=== PATIENT | male | born 1980 | race Caucasian/White ===

== ENCOUNTER 2017-10-21 08:03 | Emergency (ER) | payer MEDICAID ==
[2017-10-21 08:15] VITALS: BP 125/84
[2017-10-21] MEDS ORDERED: cefTRIAXone 250 MG VIAL IM STA (08:36)
[2017-10-21] MEDS ORDERED: LIDOCAINE 1% 2 ML VIAL SUBQ ONE (08:36)
[2017-10-21] MEDS ORDERED: AZITHROMYCIN 250 MG TABLET PO STA (08:36)
--- NOTE | 2017-10-21 08:42 | ED Physician Documentation ---
History of Present Illness - Stated complaint Stated Complaint: ARM PAIN/LUMP - Chief complaint Chief Complaint: Ext Problem - History obtained from History obtained from: Patient - History of Present Illness Timing: How many weeks ago (2) - Additonal information Additional information: 37 y/o male with a history of abscesses presents today with 2 complaints. 1) He has some areas on his right forearm that bulge out when he flexes. These have been present for 5 years and he has a new one on the volar surface of the right forearm that he noticed when he was using a hammer. 2). He and his girlfriend have had STD and she has recently been treated and he was not and they have been together and she is symptomatic again and the 2 of them would like to be treated simultaneously. Review of Systems Constitutional: denies: Fever Eyes: denies: Decreased vision Respiratory: denies: Dyspnea, Cough GI: denies: Abdominal Pain, Vomiting : denies: Dysuria, Frequency Skin: denies: Rash Musculoskeletal: reports: Extremity pain. denies: Neck pain, Back pain Neurologic: denies: Generalized weakness, Focal weakness, Numbness PD PAST MEDICAL HISTORY - Past Medical History Past Medical History: No Cardiovascular: None Respiratory: None Endocrine/Autoimmune: None GI: None HEENT: None Psych: None Musculoskeletal: None Derm: None - Past Surgical History Past Surgical History: No - Present Medications Home Medications: Ambulatory Orders Medication Instructions Recorded Confirmed No Known Home Medications [No 10/21/17 10/21/17 Known Home Medications] - Allergies Allergies/Adverse Reactions: Allergies Allergy/AdvReac Type Severity Reaction Status Date / Time No Known Drug Allergies Allergy Verified 10/21/17 08:15 - Social History Does the pt smoke?: Yes Smoking Status: Current every day smoker Does the pt drink ETOH?: No Does the pt have substance abuse?: Yes Substance Use and Type: Marijuana - Immunizations Immunizations are current?: Yes Immunizations: TDAP >10years/unknown - POLST Patient has POLST: No PD ED PE NORMAL - Vitals Vital signs reviewed: Yes (normal ) - General General: Alert and oriented X 3, No acute distress, Well developed/nourished - HEENT HEENT: Atraumatic, PERRL, EOMI - Respiratory Respiratory: No respiratory distress - Derm Derm: Normal color, Warm and dry, No rash - Extremities Extremities: No deformity, No edema, Other (There are 3 large 1cm long firm masses on flexor tendonds of the forearm. One is proximal one is dorsal and one is distal volar. The newest distal volar is reducible partially. They appear to be ganglion cysts in this patients arm with little sub Q fat. There is no overlying inflamation, abrasion or drainage. ) - Neuro Neuro: No motor deficit, No sensory deficit Eye Opening: Spontaneous Motor: Obeys Commands Verbal: Oriented GCS Score: 15 - Psych Psych: Normal mood, Normal affect Results - Vitals Vitals: Vital Signs - 24 hr 10/21/17 08:06 Temperature 36.2 C L Heart Rate 87 Respiratory 16 Rate Blood Pressure 125/84 H O2 Saturation 100 Oxygen O2 Source Room air PD MEDICAL DECISION MAKING - ED course Complexity details: considered differential, d/w patient ED course: 37-year-old male with what appears to be ganglion cysts in the forearm is recommended the use of a neoprene sleeve and referral to orthopedics for potential surgical repair. In addition he is treated for STD with the use of Rocephin 250 mg IM and azithromycin 1 g p.o. His partner has tested + for trichominiasis and he is administered metronidazole 2gm PO as well. - Sepsis Event Vital Signs: Vital Signs - 24 hr 10/21/17 08:06 Temperature 36.2 C L Heart Rate 87 Respiratory 16 Rate Blood Pressure 125/84 H O2 Saturation 100 Oxygen O2 Source Room air Departure - Departure Disposition: 01 Home, Self Care Clinical Impression: Ganglion and cyst of synovium, tendon and bursa, Exposure to STD Condition: Stable Instructions: ED Cyst Ganglion, ED STD Male Treated Follow-Up: [facility] [Provider Group]
[2017-10-21] MEDS ORDERED: metroNIDAZOLE 250 MG TABLET PO STA (09:16)
== END 2017-10-21 09:26 | disposition home or self-care (01) ==
LOC: ED 08:03
DX: M67.431 Ganglion, right wrist (principal); M71.38 Other bursal cyst, other site; Z20.2 Contact with and (suspected) exposure to infections with a predominantly sexual mode of transmission; F17.200 Nicotine dependence, unspecified, uncomplicated
CPT/HCPCS: 96372; 99283; A9270

== ENCOUNTER 2018-03-22 17:19 | Emergency (ER) | payer MEDICAID ==
[2018-03-22 17:30] VITALS: BP 135/88
[2018-03-22] MEDS ORDERED: HYDROcod/ACET 5/325 Prepack 4 PO STA (17:40)
[2018-03-22] MEDS ORDERED: SULFAMETH/TRIMETH DS 800/160 MG TABLET PO STA (17:40)
[2018-03-22] MEDS ORDERED: cephALEXin 250 MG CAPSULE PO STA (17:40)
--- NOTE | 2018-03-22 17:43 | ED Physician Documentation ---
PD HPI SKIN - Stated complaint Stated Complaint: INSECT BITE LEFT WRIST - Chief complaint Chief Complaint: Wound - History obtained from History obtained from: Patient - History of Present Illness Timing - onset: Other (He had a pimple on the left wrist that he popped but he has swelling of the hand and pain there now. No fevers but he does have a little headache today. He denies IV drug use.) Review of Systems Constitutional: denies: Fever, Chills Cardiac: denies: Chest pain / pressure, Palpitations Respiratory: denies: Dyspnea, Cough PD PAST MEDICAL HISTORY - Past Medical History Past Medical History: No Cardiovascular: None Respiratory: None Endocrine/Autoimmune: None GI: None HEENT: None Psych: None Musculoskeletal: None Derm: None - Past Surgical History Past Surgical History: Yes - Present Medications Home Medications: Ambulatory Orders Medication Instructions Recorded Confirmed Cephalexin [Keflex] 500 mg PO Q6H #40 capsule 03/22/18 Hydrocodone/Acetaminophen 1 each PO Q4H PRN #15 tablet 03/22/18 [Hydrocodone-Acetamin 5-325 mg] Sulfamethoxazole/Trimethoprim 1 each PO BID #20 tablet 03/22/18 [Sulfamethoxazole-Tmp Ds Tablet] - Allergies Allergies/Adverse Reactions: Allergies Allergy/AdvReac Type Severity Reaction Status Date / Time No Known Drug Allergies Allergy Verified 03/22/18 17:23 - Social History Does the pt smoke?: Yes Smoking Status: Current every day smoker Does the pt drink ETOH?: No Does the pt have substance abuse?: No - Immunizations Immunizations are current?: No Immunizations: TDAP >10years/unknown - POLST Patient has POLST: No PD ED PE NORMAL - Vitals Vital signs reviewed: Yes - General General: Alert and oriented X 3, No acute distress - Neuro Neuro: Alert and oriented X 3, Normal speech - Psych Psych: Normal mood, Normal affect PD ED PE EXPANDED - Extremities ELIZABETH UE/Hands Visual: 1 - abscess (There is a small wound here measuring only about 2-3mm. It appears to be kind of like a drained abscess. There is no fluctuance or anything to drain at this juncture. He has reactive cellulitis down the hand and just proximal to this area. Good range of motion at the joints.) Results - Vitals Vitals: Vital Signs - 24 hr 03/22/18 17:22 Temperature 37.3 C Heart Rate 95 Respiratory 16 Rate Blood Pressure 135/88 H O2 Saturation 100 Oxygen O2 Source Room air PD MEDICAL DECISION MAKING - ED course ED course: 38-year-old gentleman with a skin infection emanating from a little pimple-like popped lesion on the left wrist. He has cellulitis of the hand with good range of motion. Departure - Departure Disposition: Home, Self Care Clinical Impression: Cellulitis Condition: Good Record reviewed to determine appropriate education?: Yes Instructions: Cellulitis Dc Prescriptions: Cephalexin [Keflex] 500 mg PO Q6H #40 capsule Hydrocodone/Acetaminophen [Hydrocodone-Acetamin 5-325 mg] 1 each PO Q4H PRN #15 tablet PRN Reason: Pain Sulfamethoxazole/Trimethoprim [Sulfamethoxazole-Tmp Ds Tablet] 1 each PO BID #20 tablet Comments: Return immediately if the swelling, pain, or redness is worsening. Follow-up with your doctor in 2 days for recheck. Your blood pressure was elevated today on check into the emergency department. This does not mean that you have hypertension, it is a common phenomenon to come to the emergency department and have elevated blood pressure. I recommend that you see your primary care physician within the week to have it rechecked when you are feeling better. Do not drink or drive while taking narcotic pain medication. Note that many narcotic pain relievers also contain Tylenol/acetaminophen. Please ensure that your total dose of acetaminophen from all sources does not exceed 3 g (3000 mg) per day. You may get constipated while on this medication. Take a stool softener such as Colace twice a day while you are on it. Also add an [id number] laxative such as senna or MiraLAX on any day that you do not have a bowel movement. If you received a narcotic pain medication or sedative while in the emergency department, do not drive for the next 24 hours. Discharge Date/Time: 03/22/18 17:59
== END 2018-03-22 17:59 | disposition home or self-care (01) ==
LOC: ED 17:19
DX: L03.114 Cellulitis of left upper limb (principal); L02.414 Cutaneous abscess of left upper limb; F17.200 Nicotine dependence, unspecified, uncomplicated
CPT/HCPCS: 99283; A9270

== ENCOUNTER 2018-06-02 21:20 | Emergency (ER) | payer MEDICAID ==
[2018-06-02 21:27] VITALS: BP 129/87
--- NOTE | 2018-06-02 21:46 | ED Physician Documentation ---
PD HPI SKIN - Stated complaint Stated Complaint: FACE LAC/SWELLING - Chief complaint Chief Complaint: Wound - History obtained from History obtained from: Patient - History of Present Illness Timing - onset: How many days ago (2-3) Timing - duration: Days (2-3) Timing - details: Gradual onset, Still present Location: Face (left mosque area) Quality / character: Painful, Discolored (red), Draining (today drained some purulence.) Associated symptoms: No: Fever Contributing factors: Other (he has had staph infections in the past) Similar symptoms before: Diagnosis (staph infections in the past) Recently seen: Not recently seen Review of Systems Constitutional: denies: Fever Nose: denies: Rhinorrhea / runny nose, Congestion Throat: denies: Sore throat Respiratory: denies: Cough GI: denies: Vomiting, Diarrhea PD PAST MEDICAL HISTORY - Past Medical History Past Medical History: Yes Cardiovascular: None Respiratory: None Endocrine/Autoimmune: None GI: None HEENT: None Psych: None Musculoskeletal: None Derm: None - Past Surgical History Past Surgical History: Yes - Present Medications Home Medications: Ambulatory Orders Medication Instructions Recorded Confirmed Chlorhexidine Gluconate [Hibiclens] 15 ml TP DAILY #236 ml 06/02/18 Doxycycline Hyclate 100 mg PO BID #20 capsule 06/02/18 Mupirocin 1 applic TP TID #15 g 06/02/18 Naproxen 500 mg PO BID #20 tablet 06/02/18 - Allergies Allergies/Adverse Reactions: Allergies Allergy/AdvReac Type Severity Reaction Status Date / Time No Known Drug Allergies Allergy Verified 06/02/18 21:24 - Social History Does the pt smoke?: Yes Smoking Status: Current every day smoker Does the pt drink ETOH?: No Does the pt have substance abuse?: No - Immunizations Immunizations are current?: No Immunizations: TDAP >10years/unknown - POLST Patient has POLST: No PD ED PE NORMAL - Vitals Vital signs reviewed: Yes - General General: Alert and oriented X 3, No acute distress, Well developed/nourished - HEENT HEENT: Ears normal, Pharynx benign, Other (left mosque with area of firmness with small pointed sore. Mild discharge at surface. No fluctuance, and bedside U/S did not show any fluid at this time. The area is tender. ) - Neck Neck: Supple, no meningeal sign, No adenopathy - Derm Derm: Normal color, Warm and dry Results - Vitals Vitals: Vital Signs - 24 hr 06/02/18 21:25 Temperature 36.5 C Heart Rate 92 Respiratory 16 Rate Blood Pressure 129/87 H O2 Saturation 96 Oxygen O2 Source Room air PD MEDICAL DECISION MAKING - ED course Complexity details: considered differential (likely MRSA abscess that had drained at home, without residual collection so no I&D needed here. ), d/w patient Departure - Departure Disposition: Home, Self Care Clinical Impression: Facial abscess Condition: Stable Record reviewed to determine appropriate education?: Yes Instructions: ED Staph Infec Abx Tx Only Follow-Up: Linda Man ARNP [Primary Care Provider] - Prescriptions: Chlorhexidine Gluconate [Hibiclens] 15 ml TP DAILY #236 ml Doxycycline Hyclate 100 mg PO BID #20 capsule Mupirocin 1 applic TP TID #15 g Naproxen 500 mg PO BID #20 tablet Comments: I do not see a fluid collection at the site right now so no incision needed at this point. Warm soaks and moist towels to the area to help promote drainage. We will get at the infection with doxycycline antibiotic twice daily for 7-10 days. Use mupirocin antibiotic ointment at the site of the abscess and also in the nasal passage and nailbeds 2-3 times daily for the next week or so. Use chlorhexidine antiseptic wash whole body daily for the next several days to week and then once or twice weekly after that to prevent further infections. Recheck if not improved over the next several days. Discharge Date/Time: 06/02/18 22:19
[2018-06-02] MEDS ORDERED: MUPIROCIN 2% OINT 1 GM TOP STA (22:04)
[2018-06-02] MEDS ORDERED: DOXYCYCLINE 100 MG TABLET PO STA (22:04)
[2018-06-02] MEDS ORDERED: NAPROXEN 250 MG TABLET PO STA (22:04)
== END 2018-06-02 22:19 | disposition home or self-care (01) ==
LOC: ED 21:20
DX: L02.01 Cutaneous abscess of face (principal); F17.200 Nicotine dependence, unspecified, uncomplicated
CPT/HCPCS: 99283; A9270

== ENCOUNTER 2019-04-08 11:01 | Emergency (ER) | payer MEDICAID ==
[2019-04-08 11:17] VITALS: BP 110/67
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
[2019-04-08] MEDS ORDERED: IBUPROFEN 600 MG TABLET PO STA (12:34)
[2019-04-08] MEDS ORDERED: ACETAMINOPHEN 325 MG TABLET PO STA (12:34)
--- NOTE | 2019-04-08 13:25 | CT Report ---
Reason: lumbar pain acutely with bouncing mechanism Procedure Date: 04/08/2019 Accession Number: [id number] / [id number] Procedure: CT - LUMBAR SPINE WO CPT Code: Final Report FULL RESULT: EXAM: CT LUMBAR SPINE WITHOUT CONTRAST EXAM DATE: 04/08/2019 12:53 PM. CLINICAL HISTORY: Lumbar pain acutely with bouncing mechanism. COMPARISONS: None. TECHNIQUE: Thin-section axial images were acquired of the lumbar spine from T12 to S1 without contrast. Post-processing: Coronal and sagittal reformats. Other: None. In accordance with CT protocol optimization, one or more of the following dose reduction techniques were utilized for this exam: automated exposure control, adjustment of mA and/or KV based on patient size, or use of iterative reconstructive technique. FINDINGS: Alignment: Straightening of the normal lumbar lordosis. No significant anterolisthesis or retrolisthesis. Bones: Five [id number] lumbar vertebral bodies are present. Age indeterminate compression fracture of the T12 vertebral body with approximately 17% height loss. Age-indeterminate compression fracture of superior endplate of L3 with less than 10% height loss. Disk Levels/Facets: T12-L1: Unremarkable. L1-L2: Unremarkable. L2-L3: Unremarkable. L3-L4: Unremarkable. L4-L5: Moderate diffuse disk bulge. Mild to moderate central canal narrowing. Mild to moderate bilateral foraminal narrowing. L5-S1: Unremarkable. Musculature: Normal. No fatty atrophy. Other: The visualized retroperitoneum is unremarkable. IMPRESSION: 1. Age indeterminate compression fracture of the T12 vertebral body with approximately 17% height loss. Age-indeterminate compression fracture of superior endplate of L3 with less than 10% height loss. 2. Moderate diffuse disk bulge at L4-L5 level results in mild to moderate central canal narrowing and mild to moderate bilateral foraminal narrowing. 3. No significant central canal or foraminal narrowing at remaining lumbar levels. [facility]
== END 2019-04-08 14:41 | disposition home or self-care (01) ==
LOC: ED 11:01
DX: S32.030A Wedge compression fracture of third lumbar vertebra, initial encounter for closed fracture (principal); X50.3XXA Overexertion from repetitive movements, initial encounter; Y93.89 Activity, other specified; F17.200 Nicotine dependence, unspecified, uncomplicated
CPT/HCPCS: 72131; 99284; A9270

== ENCOUNTER 2019-05-13 18:14 | Emergency (ER) | payer MEDICAID ==
[2019-05-13 18:20] VITALS: BP 125/67
--- NOTE | 2019-05-13 18:26 | ED Physician Documentation ---
PD HPI DYSPNEA - Stated complaint Stated Complaint: COUGH, CP, SORE THROAT - Chief complaint Chief Complaint: Resp - History obtained from History obtained from: Patient - History of Present Illness Timing - onset: Other (Healthy 39-year-old gentleman presents with 2 days of cough that is sometimes productive of mucus associated with chest pain but no shortness of breath or fevers. The chest pain is anterior and on the right. It is not worse with deep breathing or coughing. It is fairly constant. No recent travel. No calf pain or pedal edema. No hemoptysis.) Review of Systems Constitutional: denies: Fever, Chills Ears: denies: Loss of hearing, Ear pain, Drainage/discharge Nose: reports: Congestion. denies: Rhinorrhea / runny nose Throat: denies: Sore throat Cardiac: reports: Chest pain / pressure. denies: Palpitations, Pedal edema Respiratory: reports: Dyspnea, Cough GI: denies: Abdominal Pain PD PAST MEDICAL HISTORY - Past Medical History Cardiovascular: None Respiratory: None Endocrine/Autoimmune: None GI: None HEENT: None Psych: None Musculoskeletal: Chronic back pain (higher than the area of the current injury) Derm: None - Past Surgical History Past Surgical History: Yes - Present Medications Home Medications: Ambulatory Orders Medication Instructions Recorded Confirmed Chlorhexidine Gluconate [Hibiclens] 15 ml TP DAILY #236 ml 06/02/18 Doxycycline Hyclate 100 mg PO BID #20 capsule 06/02/18 Mupirocin 1 applic TP TID #15 g 06/02/18 Naproxen 500 mg PO BID #20 tablet 06/02/18 Hydrocodone/Acetaminophen 1 each PO Q6H PRN #20 tablet 04/08/19 [Hydrocodon-Acetaminophen 5-325] Naproxen 500 mg PO BID #20 tablet 04/08/19 Tizanidine HCl 4 mg PO TID PRN #25 capsule 04/08/19 Albuterol Sulf [Ventolin Hfa 1 - 2 puffs INH Q4HR PRN #1 inhaler 05/13/19 Inhaler] Ibuprofen [Motrin] 800 mg PO Q8H PRN #30 tablet 05/13/19 - Allergies Allergies/Adverse Reactions: Allergies Allergy/AdvReac Type Severity Reaction Status Date / Time No Known Drug Allergies Allergy Verified 05/13/19 18:17 - Social History Does the pt smoke?: Yes Smoking Status: Current every day smoker Does the pt drink ETOH?: No Does the pt have substance abuse?: No - Immunizations Immunizations are current?: No Immunizations: TDAP >10years/unknown - POLST Patient has POLST: No PD ED PE NORMAL - Vitals Vital signs reviewed: Yes - General General: Alert and oriented X 3, No acute distress - HEENT HEENT: PERRL, EOMI - Neck Neck: Supple, no meningeal sign, No bony TTP - Cardiac Cardiac: RRR, No murmur - Respiratory Respiratory: No respiratory distress, Clear bilaterally - Abdomen Abdomen: Normal bowel sounds, Soft, Non tender - Back Back: No CVA TTP, No spinal TTP - Derm Derm: Normal color, Warm and dry - Extremities Extremities: No edema, No calf tenderness / cord - Neuro Neuro: Alert and oriented X 3, Normal speech Results - Vitals Vitals: Vital Signs - 24 hr 05/13/19 18:17 Temperature 36.8 C Heart Rate 81 Respiratory 15 Rate Blood Pressure 125/67 O2 Saturation 98 Oxygen O2 Source Room air - EKG (time done) 1826 Rate: Rate (enter#) (71) Rhythm: NSR [place]: Normal Intervals: Normal SC QRS: Normal Ischemia: Non specific changes. No: ST elevation c/w ischemia, ST depression Computer interpretation: Agree with computer - Labs Labs: Laboratory Tests 05/13/19 05/13/19 05/13/19 18:37 18:37 18:37 WBC 6.1 RBC 4.64 L Hgb 16.0 Hct 46.1 MCV 99.4 H MCH 34.5 H MCHC 34.7 RDW 12.6 Plt Count 242 MPV 9.4 Neut # (Auto) 3.0 Lymph # (Auto) 1.7 Burke # (Auto) 1.1 H Eos # (Auto) 0.4 Baso # (Auto) 0.1 Absolute Nucleated RBC 0.00 Nucleated RBC % 0.0 D-Dimer Sodium 139 Potassium 3.8 Chloride 105 Carbon Dioxide 26 Anion Gap 8.0 BUN 21 H Creatinine 1.3 H Estimated GFR (MDRD) 62 L Glucose 101 H Calcium 9.0 Total Bilirubin 0.4 AST 17 ALT 15 Alkaline Phosphatase 48 Troponin I High Sens < 2.3 L Total Protein 6.6 L Albumin 4.1 Globulin 2.5 Albumin/Globulin Ratio 1.6 Lipase 41 05/13/19 18:37 WBC RBC Hgb Hct MCV MCH MCHC RDW Plt Count MPV Neut # (Auto) Lymph # (Auto) Burke # (Auto) Eos # (Auto) Baso # (Auto) Absolute Nucleated RBC Nucleated RBC % D-Dimer < 200.0 L Sodium Potassium Chloride Carbon Dioxide Anion Gap BUN Creatinine Estimated GFR (MDRD) Glucose Calcium Total Bilirubin AST ALT Alkaline Phosphatase Troponin I High Sens Total Protein Albumin Globulin Albumin/Globulin Ratio Lipase - Rads (name of study) 2v chest Radiology: EMP read contemporaneously PD MEDICAL DECISION MAKING - ED course ED course: I considered pulmonary embolism in this patient. Clinically the pretest probability of pulmonary embolism is less than 15%. I applied to the PERC rules as follows: The patient's age is under 50, heart rate less than 100, oxygen saturation greater than 94%, the patient does not have a history of DVT or PE. Patient has no recent trauma or surgery. The patient has no hemoptysis. The patient is not on exogenous estrogens. The patient does not have clinical signs suggesting DVT. As such the patient ruled out for pulmonary embolism by PERC criteria. However his EKG was a little bit concerning for potential PE and a d-dimer was added on a negative. The remainder of his work-up was negative, Departure - Departure Disposition: 01 Home, Self Care Clinical Impression: Atypical chest pain, Cough Condition: Good Record reviewed to determine appropriate education?: Yes Instructions: ED Chest Pain NonCardiac, ED URI Viral Prescriptions: Albuterol Sulf [Ventolin Hfa Inhaler] 1 - 2 puffs INH Q4HR PRN #1 inhaler PRN Reason: Shortness Of Air/Wheezing Ibuprofen [Motrin] 800 mg PO Q8H PRN #30 tablet PRN Reason: PAIN &/OR FEVER Comments: You were seen today for cough associated with chest pain, out of an abundance of caution cardiac testing was done and negative. Your chest x-ray is normal except for some scarring at the site of a previous pneumonia. Return for new or worsening symptoms. It is imperative to quit smoking. Follow-up with your doctor early next week for recheck.
[2019-05-13 18:42] LABS: BASOPHILS # (AUTO) 0.1 10^3/uL (0.0-0.1); EOSINOPHILS # (AUTO) 0.4 10^3/uL (0.0-0.7); EOSINOPHILS % (AUTO) 6.4 %; LYMPHOCYTES # (AUTO) 1.7 10^3/uL (1.5-3.5); LYMPHOCYTES % (AUTO) 27.1 %; MEAN CORPUSCULAR HEMOGLOBIN 34.5 pg (27.0-31.0); MEAN CORPUSCULAR HGB CONC 34.7 g/dL (32.0-36.0); MEAN CORPUSCULAR VOLUME 99.4 fL (80.0-94.0); MEAN PLATELET VOLUME 9.4 fL (7.4-11.4); MONOCYTES # (AUTO) 1.1 10^3/uL (0.0-1.0); MONOCYTES % (AUTO) 17.2 %; NEUTROPHILS % (AUTO) 48.1 %; PLT - PLATELET COUNT 242 10^3/uL (130-450); RED BLOOD COUNT 4.64 10^6/uL (4.70-6.10); RED CELL DISTRIBUTION WIDTH 12.6 % (12.0-15.0); WHITE BLOOD COUNT 6.1 x10^3/uL (4.8-10.8)
[2019-05-13 18:56] LABS: ALBUMIN 4.1 g/dL (3.2-5.5); ALBUMIN/GLOBULIN RATIO 1.6 (1.0-2.2); BILIRUBIN,TOTAL 0.4 mg/dL (0.2-1.0); CREATININE 1.3 mg/dL (0.6-1.2); TOTAL PROTEIN 6.6 g/dL (6.7-8.2)
--- NOTE | 2019-05-13 19:14 | XRAY Report ---
Reason: chest pain Procedure Date: 05/13/2019 Accession Number: [id number] / [id number] Procedure: XR - Chest 2 View X-Ray CPT Code: 90993 Final Report FULL RESULT: EXAM: CHEST RADIOGRAPHY EXAM DATE: 05/13/2019 06:45 PM. CLINICAL HISTORY: Chest pain. Cough. COMPARISON: CHEST 2 VIEW PA/LAT 04/09/2016 11:35 PM CHEST W/O 04/19/2016 4:17 PM. TECHNIQUE: 2 views. FINDINGS: Lungs/Pleura: There is a 1 cm focus of mild increased density projecting over the posterior left seventh rib in the mid left lung which appears to represent a scar from the previously air-filled cavitary lesion seen in the same location previously. No new airspace opacities. No interstitial abnormality or peribronchial cuffing. No pneumothorax or pleural fluid. Mediastinum: Heart and mediastinal contours are unremarkable. Other: None. IMPRESSION: 1. 1 cm nodular scar at site of a small cavitary lesion seen previously in the mid left lung projecting over the posterior left seventh rib. 2. No new airspace opacities. RADIA
== END 2019-05-13 19:23 | disposition home or self-care (01) ==
LOC: ED 18:14
DX: R07.89 Other chest pain (principal); R05 Cough; J98.4 Other disorders of lung; Z87.01 Personal history of pneumonia (recurrent); M54.9 Dorsalgia, unspecified; G89.29 Other chronic pain; F17.200 Nicotine dependence, unspecified, uncomplicated; Z79.891 Long term (current) use of opiate analgesic
CPT/HCPCS: 36415; 71046; 80053; 83690; 84484; 85025; 85379; 93005; 99284

== ENCOUNTER 2019-10-05 12:50 | Emergency (ER) | payer MEDICAID ==
--- NOTE | 2019-10-05 13:09 | ED Physician Documentation ---
PD HPI BACK PAIN - Stated complaint Stated Complaint: LT SIDE PX - Chief complaint Chief Complaint: General - History obtained from History obtained from: Patient - History of Present Illness Timing - onset: How many days ago (few) Timing - duration: Days (few) Timing - details: Gradual onset (He was lifting a heavy gate to few days ago and noticed a little bit of twinge of pain in the left infrascapular area. The pain is persisted with range of motion of the arm and has increased now to include pain with breathing. He denies any cough fevers rash or sores. He had taken some ibuprofen yesterday without much improvement. The pain is worse today so here for evaluation.) Location: Upper (Left infrascapular and mid axillary area), Mid, Left Quality: Pain, Spasm Associated symptoms: No: Fever, Weakness, Numbness Improves with: Rest. No: Meds (Ibuprofen) Worsened by: Movement, Twisting, Other (deep breathing) Contributing factors: Lifting Recently seen: Not recently seen Review of Systems Constitutional: denies: Fever, Chills Nose: denies: Rhinorrhea / runny nose, Congestion Throat: denies: Sore throat Cardiac: reports: Chest pain / pressure. denies: Palpitations, Pedal edema, Calf pain Respiratory: denies: Cough, Wheezing GI: denies: Nausea, Vomiting, Diarrhea Skin: denies: Rash, Lesions Neurologic: denies: Focal weakness, Numbness PD PAST MEDICAL HISTORY - Past Medical History Cardiovascular: None Respiratory: None Endocrine/Autoimmune: None GI: None HEENT: None Psych: None Musculoskeletal: Chronic back pain (higher than the area of the current injury) Derm: None - Past Surgical History Past Surgical History: Yes - Present Medications Home Medications: Ambulatory Orders Medication Instructions Recorded Confirmed Chlorhexidine Gluconate [Hibiclens] 15 ml TP DAILY #236 ml 06/02/18 Doxycycline Hyclate 100 mg PO BID #20 capsule 06/02/18 Mupirocin 1 applic TP TID #15 g 06/02/18 Naproxen 500 mg PO BID #20 tablet 06/02/18 Hydrocodone/Acetaminophen 1 each PO Q6H PRN #20 tablet 04/08/19 [Hydrocodon-Acetaminophen 5-325] Naproxen 500 mg PO BID #20 tablet 04/08/19 Tizanidine HCl 4 mg PO TID PRN #25 capsule 04/08/19 Albuterol Sulf [Ventolin Hfa 1 - 2 puffs INH Q4HR PRN #1 inhaler 05/13/19 Inhaler] Ibuprofen [Motrin] 800 mg PO Q8H PRN #30 tablet 05/13/19 Hydrocodone/Acetaminophen [[place] 1 each PO Q6H PRN #10 tablet 10/05/19 5-325 Tablet] Naproxen 500 mg PO BID #20 tablet 10/05/19 Tizanidine HCl 4 mg PO TID PRN #20 capsule 10/05/19 - Allergies Allergies/Adverse Reactions: Allergies Allergy/AdvReac Type Severity Reaction Status Date / Time No Known Drug Allergies Allergy Verified 10/05/19 12:55 - Social History Does the pt smoke?: Yes Smoking Status: Current every day smoker Does the pt drink ETOH?: No Does the pt have substance abuse?: No - Immunizations Immunizations are current?: No Immunizations: TDAP >10years/unknown - POLST Patient has POLST: No PD ED PE NORMAL - Vitals Vital signs reviewed: Yes - General General: Alert and oriented X 3, Well developed/nourished, Other (He appears uncomfortable with movement of the left shoulder girdle and with deep breathing.) - Neck Neck: Supple, no meningeal sign, No adenopathy - Cardiac Cardiac: RRR, No murmur - Respiratory Respiratory: Clear bilaterally, Other (No chest wall tenderness or rash or sores) - Abdomen Abdomen: Soft, Non tender - Derm Derm: Normal color, Warm and dry - Neuro Neuro: Alert and oriented X 3, No motor deficit, No sensory deficit, Normal speech Results - Vitals Vitals: Vital Signs - 24 hr 10/05/19 10/05/19 12:55 13:17 Temperature 36.5 C 36.2 C L Heart Rate 83 78 Respiratory 14 16 Rate Blood Pressure 128/70 124/78 O2 Saturation 96 98 Oxygen O2 Source Room air - Rads (name of study) chest xray Radiology: Prelim report reviewed (no acute process), See rad report PD MEDICAL DECISION MAKING - ED course Complexity details: considered differential (Seems deep musculoskeletal. Consider pleurisy though he has not had any cough or respiratory type symptoms. Can treat this with anti-inflammatories and muscle relaxants with a short duration pain medicine if needed.), d/w patient Departure - Departure Disposition: 01 Home, Self Care Clinical Impression: Left-sided chest pain Condition: Stable Record reviewed to determine appropriate education?: Yes Instructions: ED Chest Pain Pleurisy Prescriptions: Hydrocodone/Acetaminophen [[place] 5-325 Tablet] 1 each PO Q6H PRN #10 tablet PRN Reason: Pain Naproxen 500 mg PO BID #20 tablet Tizanidine HCl 4 mg PO TID PRN #20 capsule PRN Reason: Spasms Comments: Your chest x-ray appears normal without any obvious lung process going on. I presume this is some inflammation either around the lung called pleurisy or within the chest wall musculoskeletal structures. I would anticipate improvement over the next several days and resolution within a week with the use of anti-inflammatories such as naproxen twice daily and muscle relaxant tizanidine as needed for spasms. To that add Tylenol every 4-6 hours if needed for pain, or hydrocodone for worse pain. Recheck if not improved over the next several days or so. Return if other symptoms develop such as fevers, cough, rash, worse pain or other concerns. Forms: Activity restrictions
[2019-10-05] MEDS ORDERED: CHERRY SYRUP 10 ML UDC PO ONE (13:38)
[2019-10-05] MEDS ORDERED: NAPROXEN 250 MG TABLET PO STA (13:38)
[2019-10-05] MEDS ORDERED: HYDROcod/ACETAM 5/325 MG TABLET PO STA (13:38)
[2019-10-05] MEDS ORDERED: DEXAMETHASONE 10 MG/ML VIAL PO STA (13:38)
[2019-10-05] MEDS ORDERED: methocarbamoL 500 MG TABLET PO STA (13:38)
[2019-10-05 14:46] VITALS: BP 118/73
--- NOTE | 2019-10-05 17:48 | XRAY Report ---
Reason: dyspnea/ cough Procedure Date: 10/05/2019 Accession Number: [id number] / [id number] Procedure: XR - Chest 2 View X-Ray CPT Code: 37033 Final Report FULL RESULT: PROCEDURE: Chest 2 View X-Ray INDICATIONS: dyspnea/ cough TECHNIQUE: 1 view(s) of the chest COMPARISON: 05/13/2019 FINDINGS: Surgical changes and devices: None. Lungs and pleura: No pleural effusions or pneumothorax. 1.1 cm nodular opacity in the left midlung is stable compared to the prior exam. Lungs are clear of acute opacities. Mediastinum: Mediastinal contours are normal. Heart size is normal. Bones and chest wall: No suspicious bony abnormalities. Soft tissues appear unremarkable. IMPRESSION: No acute cardiopulmonary disease process. Reviewed by: Landy Nicolas MD, PhD on 10/05/2019 2:11 PM PDT Approved by: Landy Nicolas MD, PhD on 10/05/2019 2:11 PM PDT Station ID: [id number]
== END 2019-10-05 14:45 | disposition home or self-care (01) ==
LOC: ED 12:50
DX: R07.89 Other chest pain (principal); F17.200 Nicotine dependence, unspecified, uncomplicated
CPT/HCPCS: 71046; 99283; 99284; A9270

== ENCOUNTER 2019-12-15 12:59 | Emergency (ER) | payer MEDICAID ==
--- NOTE | 2019-12-15 13:41 | ED Physician Documentation ---
PD HPI MALE - Stated complaint Stated Complaint: SCREENING - Chief complaint Chief Complaint: General - History obtained from History obtained from: Patient - History of Present Illness Timing - onset: How many days ago (3 days ago and few other times up to about 1 1/2 months ago. Had unprotected intercourse and concerned about STDs (direct contact). Does not have any rash, sores, dysuria, scrotal swelling.) Timing - details: Other (no symptoms of UTI/Dysuria hereeew) Associated symptoms: No: Dysuria, Urinary frequency, Discharge, Scrotal swelling PD HPI MALE CONTRIB FACTORS: Sexually active. No: Exposed to STD (no known STD exposure but concerned about it.) Similar symptoms before: Has not had sx before Review of Systems Constitutional: denies: Fever, Chills, Myalgias GI: reports: Abdominal Pain. denies: Nausea, Vomiting Skin: denies: Rash, Lesions PD PAST MEDICAL HISTORY - Past Medical History Cardiovascular: None Respiratory: None Neuro: Headaches Endocrine/Autoimmune: None GI: None : None HEENT: None Psych: None Musculoskeletal: Chronic back pain Derm: None - Past Surgical History Past Surgical History: Yes - Present Medications Home Medications: Ambulatory Orders Medication Instructions Recorded Confirmed Chlorhexidine Gluconate [Hibiclens] 15 ml TP DAILY #236 ml 06/02/18 Doxycycline Hyclate 100 mg PO BID #20 capsule 06/02/18 Mupirocin 1 applic TP TID #15 g 06/02/18 Naproxen 500 mg PO BID #20 tablet 06/02/18 Hydrocodone/Acetaminophen 1 each PO Q6H PRN #20 tablet 04/08/19 [Hydrocodon-Acetaminophen 5-325] Naproxen 500 mg PO BID #20 tablet 04/08/19 Tizanidine HCl 4 mg PO TID PRN #25 capsule 04/08/19 Albuterol Sulf [Ventolin Hfa 1 - 2 puffs INH Q4HR PRN #1 inhaler 05/13/19 Inhaler] Ibuprofen [Motrin] 800 mg PO Q8H PRN #30 tablet 05/13/19 Hydrocodone/Acetaminophen [[place] 1 each PO Q6H PRN #10 tablet 10/05/19 5-325 Tablet] Naproxen 500 mg PO BID #20 tablet 10/05/19 Tizanidine HCl 4 mg PO TID PRN #20 capsule 10/05/19 - Allergies Allergies/Adverse Reactions: Allergies Allergy/AdvReac Type Severity Reaction Status Date / Time No Known Drug Allergies Allergy Verified 12/15/19 13:19 - Social History Does the pt smoke?: Yes Smoking Status: Current every day smoker Does the pt drink ETOH?: No Does the pt have substance abuse?: No - Immunizations Immunizations are current?: No Immunizations: TDAP >10years/unknown - POLST Patient has POLST: No PD ED PE NORMAL - Vitals Vital signs reviewed: Yes - General General: Alert and oriented X 3, No acute distress, Well developed/nourished - HEENT HEENT: Pharynx benign - Abdomen Abdomen: Soft, Non tender - Male Male : Deferred - Rectal Rectal: Deferred - Back Back: No CVA TTP - Derm Derm: Normal color, Warm and dry Results - Vitals Vitals: Vital Signs - 24 hr 12/15/19 12/15/19 13:16 14:45 Temperature 36.1 C L 36.6 C Heart Rate 67 71 Respiratory 18 18 Rate Blood Pressure 132/82 H 114/62 O2 Saturation 99 100 Oxygen O2 Source Room air - Labs Labs: Laboratory Tests 12/15/19 14:00 Chlam trachomat DNA PCR NEGATIVE N.gonorrhoeae DNA (PCR) NEGATIVE T. vaginalis (PCR) NEGATIVE PD MEDICAL DECISION MAKING - ED course Complexity details: considered differential (can test urine for STDs, but would not be able to exclude recent contamination and so shared decision making to just treat for usual culprits. Discussed blood borne, such as HIV and he says he is not concerned about that type of transmissant.), d/w patient Departure - Departure Disposition: 01 Home, Self Care Clinical Impression: Unprotected sexual intercourse Condition: Stable Record reviewed to determine appropriate education?: Yes Comments: He was given antibiotics to cover for most common STDs. Your urine test will result in a day or so and see if there is any sign of already established infection. The antibiotics given would cover developing infection as well. Recheck if any symptoms with urination or discharge or scrotal swelling or pain. Forms: Activity restrictions Discharge Date/Time: 12/15/19 14:45
[2019-12-15] MEDS ORDERED: cefTRIAXone 500 MG VIAL IM STA (14:10)
[2019-12-15] MEDS ORDERED: LIDOCAINE 1% 2 ML VIAL MC ONE (14:10)
[2019-12-15] MEDS ORDERED: AZITHROMYCIN 250 MG TABLET PO STA (14:10)
[2019-12-15 14:45] VITALS: BP 114/62
[2019-12-15 17:54] LABS: TRICHOMONAS VAGINALIS DNA NEGATIVE (NEGATIVE)
== END 2019-12-15 14:45 | disposition home or self-care (01) ==
LOC: ED 12:59
DX: Z72.51 High risk heterosexual behavior (principal); F17.200 Nicotine dependence, unspecified, uncomplicated
CPT/HCPCS: 87491; 87591; 87661; 96372; 99283; A9270

== ENCOUNTER 2020-03-09 08:11 | Emergency (ER) | payer OTHER, MEDICAID ==
[2020-03-09 08:28] VITALS: BP 115/80
--- NOTE | 2020-03-09 08:31 | ED Physician Documentation ---
PD HPI OPHTHO - Stated complaint Stated Complaint: RT EYE PX - Chief complaint Chief Complaint: Heent - History obtained from History obtained from: Patient - History of Present Illness Timing - onset: Yesterday Timing - details: Abrupt onset, Still present Location: Right Quality / character: Sharp Associated symptoms: Tearing, FB sensation. No: Redness Contributing factors: FB (he was grinding metal pipe that burst and caused water and possible metal speck to go into right eye. Feeling of FB that persists into today.), Work related. No: UV light (welding etc), Wears contacts Similar symptoms before: Has not had sx before Recently seen: Not recently seen Review of Systems Constitutional: denies: Fever Eyes: reports: Decreased vision, Irritation. denies: Loss of vision, Discharge Nose: denies: Rhinorrhea / runny nose, Congestion Throat: denies: Sore throat Respiratory: denies: Cough Neurologic: denies: Headache, Head injury PD PAST MEDICAL HISTORY - Past Medical History Cardiovascular: None Respiratory: None Neuro: Headaches Endocrine/Autoimmune: None GI: None : None HEENT: None Psych: None Musculoskeletal: Chronic back pain Derm: None - Past Surgical History Past Surgical History: Yes - Present Medications Home Medications: Ambulatory Orders Medication Instructions Recorded Confirmed Chlorhexidine Gluconate [Hibiclens] 15 ml TP DAILY #236 ml 06/02/18 Doxycycline Hyclate 100 mg PO BID #20 capsule 06/02/18 Mupirocin 1 applic TP TID #15 g 06/02/18 Naproxen 500 mg PO BID #20 tablet 06/02/18 Hydrocodone/Acetaminophen 1 each PO Q6H PRN #20 tablet 04/08/19 [Hydrocodon-Acetaminophen 5-325] Naproxen 500 mg PO BID #20 tablet 04/08/19 Tizanidine HCl 4 mg PO TID PRN #25 capsule 04/08/19 Albuterol Sulf [Ventolin Hfa 1 - 2 puffs INH Q4HR PRN #1 inhaler 05/13/19 Inhaler] Ibuprofen [Motrin] 800 mg PO Q8H PRN #30 tablet 05/13/19 Hydrocodone/Acetaminophen [[place] 1 each PO Q6H PRN #10 tablet 10/05/19 5-325 Tablet] Naproxen 500 mg PO BID #20 tablet 10/05/19 Tizanidine HCl 4 mg PO TID PRN #20 capsule 10/05/19 Erythromycin Base [Erythromycin 1 applic OP QID #3.5 oint...g. 03/09/20 Ophthalmic Ointment] - Allergies Allergies/Adverse Reactions: Allergies Allergy/AdvReac Type Severity Reaction Status Date / Time No Known Drug Allergies Allergy Verified 03/09/20 08:28 - Social History Does the pt smoke?: Yes Smoking Status: Current every day smoker Does the pt drink ETOH?: No Does the pt have substance abuse?: No - Immunizations Immunizations are current?: No Immunizations: TDAP >10years/unknown - POLST Patient has POLST: No PD ED PE NORMAL - Vitals Vital signs reviewed: Yes - General General: Alert and oriented X 3, No acute distress (seems uncomfortable with eyes open or to light directly. ), Well developed/nourished - HEENT HEENT: PERRL, EOMI PD ED PE EXPANDED - HEENT HEENT Visual: 1 - abrasion - Eyes Eyes: Right eye, Injected conj/sclera (mild), Corneal abrasion, Fluorescein uptake, Other (feels better with proparacaine). No: Eyelid injury, Conj/sclera FB, Corneal FB Results - Vitals Vitals: Vital Signs - 24 hr 03/09/20 08:23 Temperature 36.7 C Heart Rate 66 Respiratory 16 Rate Blood Pressure 115/80 O2 Saturation 98 Oxygen O2 Source Room air PD MEDICAL DECISION MAKING - ED course Complexity details: considered differential (no residual FB seen. Has small abrasion 4 o'clock area of eye.), d/w patient Departure - Departure Disposition: 01 Home, Self Care Clinical Impression: Corneal abrasion Qualifiers: Encounter type: initial encounter Laterality: right Qualified Code(s): S05.01XA - Injury of conjunctiva and corneal abrasion without foreign body, right eye, initial encounter Condition: Stable Record reviewed to determine appropriate education?: Yes Instructions: ED Eye Injury Corneal Abrasion Prescriptions: Erythromycin Base [Erythromycin Ophthalmic Ointment] 1 applic OP QID #3.5 oint...g. Comments: Rest your eyes today. Use some Tylenol or ibuprofen as needed. You can use the antibiotic ointment more as a soothing coating on the eye and not necessarily needing the antibiotic per se. Moisturizing eyedrops could work as well. I would anticipate improvement through today into tomorrow and resolution in 1 t o 2 more days. Forms: Activity restrictions Discharge Date/Time: 03/09/20 09:22
[2020-03-09] MEDS ORDERED: ACETAMINOPHEN 325 MG TABLET PO STA (08:56)
[2020-03-09] MEDS ORDERED: ERYTHROMYCIN OPHTH OINT 1 GM TUBE RIGHTEYE STA (08:56)
[2020-03-09] MEDS ORDERED: TETANUS/DIPHTHERIA/PERTUSSIS 0.5 ML SYRINGE IM ONE (09:00)
[2020-03-09] MEDS ORDERED: ACETAMINOPHEN 325 MG TABLET PO ONE (09:25)
== END 2020-03-09 09:22 | disposition home or self-care (01) ==
LOC: ED 08:11
DX: S05.01XA Injury of conjunctiva and corneal abrasion without foreign body, right eye, initial encounter (principal); X58.XXXA Exposure to other specified factors, initial encounter; Y93.9 Activity, unspecified; Y99.0 Civilian activity done for income or pay; F17.200 Nicotine dependence, unspecified, uncomplicated
CPT/HCPCS: 1040M; 99282; 99283; A9270; J3490

== ENCOUNTER 2020-08-16 18:52 | Emergency (ER) | payer MEDICAID ==
[2020-08-16 18:57] VITALS: BP 112/68
--- NOTE | 2020-08-16 19:07 | ED Physician Documentation ---
History of Present Illness - Stated complaint Stated Complaint: MALE - Chief complaint Chief Complaint: General - History obtained from History obtained from: Patient - History of Present Illness Timing: Other (asymptomatic) Pain level max: 0 Pain level now: 0 - Additonal information Additional information: patient is asymptomatic, presents to ED because his partner told him that she tested positive for trichomoniasis yesterday. he indicates that she was negative for other STDs. he says the tests were performed earlier this week in outpatient clinic. Review of Systems Constitutional: reports: Reviewed and negative GI: denies: Abdominal Pain : denies: Dysuria, Frequency, Discharge Skin: denies: Rash PD PAST MEDICAL HISTORY - Past Medical History Past Medical History: Yes Cardiovascular: None Respiratory: None Neuro: Headaches Endocrine/Autoimmune: None GI: None : None HEENT: None Psych: None Musculoskeletal: Chronic back pain Derm: None - Past Surgical History Past Surgical History: Yes - Present Medications Home Medications: Ambulatory Orders Medication Instructions Recorded Confirmed No Known Home Medications 08/16/20 08/16/20 - Allergies Allergies/Adverse Reactions: Allergies Allergy/AdvReac Type Severity Reaction Status Date / Time No Known Drug Allergies Allergy Verified 08/16/20 18:55 - Social History Does the pt smoke?: Yes Smoking Status: Current every day smoker Does the pt drink ETOH?: No Does the pt have substance abuse?: No - Immunizations Immunizations are current?: Yes Immunizations: TDAP >10years/unknown - POLST Patient has POLST: No PD ED PE NORMAL - Vitals Vital signs reviewed: Yes - General General: Alert and oriented X 3, No acute distress, Well developed/nourished - Abdomen Abdomen: Soft, Non tender - Back Back: No CVA TTP Results - Vitals Vitals: Oxygen O2 Source Room air PD MEDICAL DECISION MAKING - ED course Complexity details: reviewed old records, considered differential, d/w patient ED course: asymptomatic male who was told by his female partner that she tested positive for trichomoniasis earlier this week. I offered him the option of one-time dose (metronidazole) versus 7 day course and he prefers one-time dose, and this is given in ED Departure - Departure Disposition: 01 Home, Self Care Clinical Impression: Exposure to STD Condition: Good Instructions: ED STD Male Treated Follow-Up: CHARY HELM ARNP [Primary Care Provider] - Comments: Avoid sexual contact with anyone for one week Discharge Date/Time: 08/16/20 19:30
--- OUTSIDE RECORDS SUMMARY | 2020-08-16 19:13 | EXTERNAL MEDICAL SUMMARY RPT | Continuity of Care Document ---
:1980 Demographics Phone Unavailable Preferred Language Unknown Marital Status Unknown Oriental Orthodox Affiliation Unknown Race Unknown Ethnic Group Unknown Author Organization [facility] [address] [place] [address] Phone Social History date description facility [phone]
[2020-08-16] MEDS ORDERED: metroNIDAZOLE 250 MG TABLET PO STA (19:20)
== END 2020-08-16 19:30 | disposition home or self-care (01) ==
LOC: ED 18:52
DX: Z20.2 Contact with and (suspected) exposure to infections with a predominantly sexual mode of transmission (principal); F17.200 Nicotine dependence, unspecified, uncomplicated
CPT/HCPCS: 99282; 99283; A9270

== ENCOUNTER 2020-10-20 00:39 | Emergency (ER) | payer MEDICAID ==
[2020-10-20 00:59] VITALS: BP 132/74
--- NOTE | 2020-10-20 01:52 | ED Physician Documentation ---
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 Patient states that he has had pain and eye discharge with inability to sleep tonight. He is unsure if you sustained an injury at work or if it was after work when he was driving in his convertible. Pain was gradual in onset today, localized to the right eye. Review of Systems Eyes: reports: Decreased vision, Photophobia, Discharge, Irritation PD PAST MEDICAL HISTORY - Past Medical History Past Medical History: No Cardiovascular: None Respiratory: None Neuro: Headaches Endocrine/Autoimmune: None GI: None : None HEENT: None Psych: None Musculoskeletal: Chronic back pain Derm: None - Past Surgical History Past Surgical History: No - Present Medications Home Medications: Ambulatory Orders Medication Instructions Recorded Confirmed Ofloxacin 0.3% Ophth Drops 2 drops OPTH Q4H #5 ml 10/20/20 [Ocuflox 0.3% Ophth Drops] - Allergies Allergies/Adverse Reactions: Allergies Allergy/AdvReac Type Severity Reaction Status Date / Time No Known Drug Allergies Allergy Verified 10/20/20 00:59 - Social History Does the pt smoke?: Yes Smoking Status: Current every day smoker Does the pt drink ETOH?: No Does the pt have substance abuse?: No - Immunizations Immunizations are current?: No Immunizations: TDAP >10years/unknown - POLST Patient has POLST: No PD ED PE NORMAL - Vitals Vital signs reviewed: Yes - General General: Alert and oriented X 3, No acute distress, Well developed/nourished - HEENT HEENT: Atraumatic, PERRL, EOMI, Other (Corneal abrasion apparent on fluorescein stain. Right eye with corneal foreign body at the center (black and metallic appearing, less than 1 mm in size)) Results - Vitals Vitals: Vital Signs - 24 hr 10/20/20 00:41 Temperature 36.6 C Heart Rate 77 Respiratory 16 Rate Blood Pressure 132/74 H O2 Saturation 98 Oxygen O2 Source Room air Procedures - General procedure General procedure: Corneal foreign body removed using ophthalmic bur without incident. Proparacaine eye drops applied prior to procedure. Patient tolerated well. EBL 0. Departure - Departure Disposition: Home, Self Care Clinical Impression: Corneal abrasion, Corneal foreign body Condition: Good Instructions: ED Eye Injury Corneal Abrasion Prescriptions: Ofloxacin 0.3% Ophth Drops [Ocuflox 0.3% Ophth Drops] 2 drops OPTH Q4H #5 ml Comments: You are seen in the emergency department for corneal abrasion (scratch on the eye) and corneal foreign body (piece of metal on the eye). I was able to remove it and I am prescribing you antibiotic eyedrops to prevent infection. Please return to the emergency department if you have any new or worsening symptoms or other concerns. Follow-up with your primary doctor.
== END 2020-10-20 01:54 | disposition home or self-care (01) ==
LOC: ED 00:39
DX: T15.01XA Foreign body in cornea, right eye, initial encounter (principal); X58.XXXA Exposure to other specified factors, initial encounter; Y93.89 Activity, other specified; Y99.0 Civilian activity done for income or pay; F17.200 Nicotine dependence, unspecified, uncomplicated
CPT/HCPCS: 65220; 99281; 99282

== ENCOUNTER 2021-01-24 14:56 | Outpatient (CLI) | payer MEDICAID | END 2021-01-24 14:57 | disposition home or self-care (01) | LOC: COV 14:56 | PROVIDERS: ATTEND Family Medicine | DX: Z20.822 Contact with and (suspected) exposure to COVID-19 (principal) ==

== ENCOUNTER 2021-02-13 17:56 | Emergency (ER) | payer MEDICAID ==
[2021-02-13] MEDS ORDERED: metroNIDAZOLE 250 MG TABLET PO STA (18:25)
--- NOTE | 2021-02-13 18:31 | ED Physician Documentation ---
History of Present Illness - Stated complaint Stated Complaint: MALE - Chief complaint Chief Complaint: General - History obtained from History obtained from: Patient - History of Present Illness Timing: Today Pain level max: 0 Pain level now: 0 - Additonal information Additional information: Patient is a 40-year-old male who states that his recent sexual partner tested positive for trichomonas. She was negative for gonorrhea and chlamydia. He is here requesting to be treated. He is asymptomatic. Nothing makes it better or worse. No discharge, no pain or burning with urination. Review of Systems Constitutional: denies: Fever : denies: Dysuria PD PAST MEDICAL HISTORY - Past Medical History Cardiovascular: None Respiratory: None Neuro: Headaches Endocrine/Autoimmune: None GI: None : None HEENT: None Psych: None Musculoskeletal: Chronic back pain Derm: None - Past Surgical History Past Surgical History: No - Present Medications Home Medications: Ambulatory Orders Medication Instructions Recorded Confirmed No Known Home Medications 02/13/21 02/13/21 - Allergies Allergies/Adverse Reactions: Allergies Allergy/AdvReac Type Severity Reaction Status Date / Time No Known Drug Allergies Allergy Verified 02/13/21 17:58 - Social History Does the pt smoke?: Yes Smoking Status: Current every day smoker Does the pt drink ETOH?: No Does the pt have substance abuse?: No - Immunizations Immunizations are current?: No Immunizations: TDAP >10years/unknown - POLST Patient has POLST: No PD ED PE NORMAL - Vitals Vital signs reviewed: Yes - General General: Alert and oriented X 3, No acute distress - HEENT HEENT: Moist mucous membranes - Neck Neck: Supple, no meningeal sign - Respiratory Respiratory: No respiratory distress - Male Male : Pt declined - Derm Derm: Warm and dry - Neuro Neuro: Alert and oriented X 3 Results - Vitals Vitals: Vital Signs - 24 hr 02/13/21 02/13/21 17:59 18:44 Temperature 36.4 C L 36.6 C Heart Rate 82 80 Respiratory 16 Rate Blood Pressure 111/80 110/80 O2 Saturation 99 Oxygen O2 Source Room air PD MEDICAL DECISION MAKING - ED course Complexity details: considered differential, d/w patient ED course: Patient with trichomonas exposure. Given 2 g of Flagyl. Urine was sent for gonorrhea chlamydia testing. Recommend that he follow-up with his doctor for full STD testing including HIV testing. Patient counseled regarding signs and symptoms for which I believe and urgent re-evaluation would be necessary. Patient with good understanding of and agreement to plan and is comfortable going home at this time This document was made in part using voice recognition software. While efforts are made to proofread this document, sound alike and grammatical errors may occur. Departure - Departure Disposition: Home, Self Care Clinical Impression: Trichomonas contact, treated Condition: Good Instructions: ED Vaginitis Trichomonas Follow-Up: your,doctor as needed. [Other] Comments: You were treated with Flagyl today. Please follow-up with your doctor for further care and any further testing. Gonorrhea and Chlamydia testing were also sent, you will be called if these are positive. Discharge Date/Time: 02/13/21 18:47
[2021-02-13 18:47] VITALS: BP 110/80
[2021-02-13 21:23] LABS: CHLAMYDIA TRACHOMATIS DNA NEGATIVE (NEGATIVE); NEISSERIA GONORRHOEAE DNA NEGATIVE (NEGATIVE)
== END 2021-02-13 18:47 | disposition home or self-care (01) ==
LOC: ED 17:56
DX: Z20.2 Contact with and (suspected) exposure to infections with a predominantly sexual mode of transmission (principal); F17.200 Nicotine dependence, unspecified, uncomplicated
CPT/HCPCS: 87491; 87591; 99283; A9270; 87661

== ENCOUNTER 2021-03-10 10:05 | Emergency (ER) | payer MEDICAID ==
[2021-03-10 10:29] VITALS: BP 118/76
--- NOTE | 2021-03-10 11:21 | ED Physician Documentation ---
PD HPI MALE - Stated complaint Stated Complaint: FOLLOW UP - Chief complaint Chief Complaint: General - History obtained from History obtained from: Patient - History of Present Illness Timing - onset: Today Timing - duration: Months (1) Timing - details: Now resolved Associated symptoms: No: Dysuria, Urinary frequency, Unable to urinate, Hematuria, Discharge, Genital sore / lesion, Testiclar pain, Scrotal swelling, Abdominal pain, Back pain PD HPI MALE CONTRIB FACTORS: Exposed to STD (had trich exposure last month) Similar symptoms before: Diagnosis (trich exposure) Recently seen: Emergency Dept - Additional information Additional information: 40-year-old male who had an exposure to trichomonas last month was treated with 2 g of metronidazole at that time he is here again today with concerns that his partner has been treated he has been treated and she has been retested she is negative and heat she is requiring him to be retested as well. He has submitted a urine sample and he is asymptomatic. Review of Systems Constitutional: denies: Fever Nose: denies: Congestion Throat: denies: Sore throat Respiratory: denies: Cough GI: denies: Vomiting : denies: Dysuria, Frequency, Incontinent, Hematuria, Discharge Skin: denies: Rash Musculoskeletal: denies: Neck pain, Back pain, Extremity pain PD PAST MEDICAL HISTORY - Past Medical History Cardiovascular: None Respiratory: None Neuro: Headaches Endocrine/Autoimmune: None GI: None : None HEENT: None Psych: None Musculoskeletal: Chronic back pain Derm: None - Past Surgical History Past Surgical History: No - Present Medications Home Medications: Ambulatory Orders Medication Instructions Recorded Confirmed No Known Home Medications 02/13/21 02/13/21 - Allergies Allergies/Adverse Reactions: Allergies Allergy/AdvReac Type Severity Reaction Status Date / Time No Known Drug Allergies Allergy Verified 03/10/21 10:29 - Social History Does the pt smoke?: Yes Smoking Status: Current every day smoker Does the pt drink ETOH?: No Does the pt have substance abuse?: No - Immunizations Immunizations are current?: No Immunizations: TDAP >10years/unknown - POLST Patient has POLST: No PD ED PE NORMAL - Vitals Vital signs reviewed: Yes (Normal) - General General: Alert and oriented X 3, No acute distress, Well developed/nourished - HEENT HEENT: Atraumatic, PERRL - Respiratory Respiratory: No respiratory distress - Derm Derm: Normal color, Warm and dry, No rash - Extremities Extremities: No deformity, No edema - Neuro Neuro: Alert and oriented X 3, 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, No motor deficit, No sensory deficit, Normal speech Eye Opening: Spontaneous Motor: Obeys Commands Verbal: Oriented GCS Score: 15 - Psych Psych: Normal mood, Normal affect Results - Vitals Vitals: Vital Signs - 24 hr 03/10/21 10:23 Temperature 36.4 C L Heart Rate 72 Respiratory 16 Rate Blood Pressure 118/76 O2 Saturation 98 Oxygen O2 Source Room air PD MEDICAL DECISION MAKING - ED course Complexity details: reviewed results, re-evaluated patient, considered differential, d/w patient ED course: 40-year-old male with exposure to trichomonas has been treated 1 month ago he is here without symptoms and wanting a test to assure resolution. We have a send o ut test today that is done on urine and this will be resulted to the patient within the week. Departure - Departure Disposition: 01 Home, Self Care Clinical Impression: Trichomonas contact, treated Condition: Stable Instructions: ED Vaginitis Trichomonas Follow-Up: [facility] [Provider Group] Comments: Salvador, you have been treated 1 month ago for trichomoniasis. It is unusual to get trichomoniasis in the male and it is unlikely that you have any evidence of that now. The laboratory that we have sent will be resulted within the next 3 days.
== END 2021-03-10 11:35 | disposition home or self-care (01) ==
LOC: ED 10:05
DX: Z20.2 Contact with and (suspected) exposure to infections with a predominantly sexual mode of transmission (principal); F17.200 Nicotine dependence, unspecified, uncomplicated
CPT/HCPCS: 81599; 87491; 87591; 87661; 99281; 99283